=== PATIENT | female | born 1955 | race Caucasian/White ===

== ENCOUNTER → 2017-09-10 | Outpatient (CLI) | payer OTHER ==
--- NOTE | 2017-09-11 11:34 | MM ---
Reason for exam: screening (asymptomatic). Last mammogram was performed 2 years and 8 months ago. History: Patient is postmenopausal and had first child at age 34. Physical Findings: A clinical breast exam by your physician is recommended on an annual basis and results should be correlated with mammographic findings. MG Screening Mammo w CAD Bilateral CC and MLO view(s) were taken. Prior study comparison: January 18, 2015, bilateral MG screening mammo w CAD. The breast tissue is heterogeneously dense. This may lower the sensitivity of mammography. No significant changes when compared with prior studies. ASSESSMENT: Negative, BI-RAD 1 RECOMMENDATION: Routine screening mammogram of both breasts in 1 year.
== END | disposition home or self-care (01) ==
LOC: RADMAMWWP 09:34
PROVIDERS: ATTEND Family Medicine
DX: Z12.31 Encounter for screening mammogram for malignant neoplasm of breast (principal)
CPT/HCPCS: 77067

== ENCOUNTER → 2017-09-18 | Outpatient (CLI) | payer OTHER ==
--- NOTE | 2017-09-18 17:48 | XR ---
EXAMINATION TYPE: XR lumbosacral spine min 4V DATE OF EXAM: 09/18/2017 COMPARISON: NONE HISTORY: Back pain TECHNIQUE: 5 views FINDINGS: The lumbar vertebra have normal alignment. There is some narrowing at L4-5 L5-S1 disc space s with spurring of the endplates. There is no compression fracture. Posterior elements are intact. Sa croiliac joints are intact. IMPRESSION: Spondylotic changes in the lower lumbar spine. No fracture.
== END | disposition home or self-care (01) ==
LOC: RADXRMAIN 16:27
PROVIDERS: ATTEND Family Medicine
DX: M47.816 Spondylosis without myelopathy or radiculopathy, lumbar region (principal)
CPT/HCPCS: 72110

== ENCOUNTER → 2018-01-01 | Outpatient (CLI) | payer OTHER ==
--- NOTE | 2018-01-01 13:50 | US ---
EXAMINATION TYPE: US abdomen complete DATE OF EXAM: 01/01/2018 COMPARISON: NONE CLINICAL HISTORY: R10.84 ABDOMINAL PAIN. epigastric pain EXAM MEASUREMENTS: Liver Length: 13.2 cm Gallbladder Wall: 0.2 cm CBD: 0.4 cm Spleen: 7.9 cm Right Kidney: 9.4 x 3.8 x 4.6 cm Left Kidney: 9.9 x 4.9 x 5.3 cm Exam technically difficult tung to overlying bowel gas. Pancreas: visualized portions wnl. Tail is obscured by bowel gas. Liver: difficult to penetrate . There is a simple appearing cyst measuring 1.2 x 1.2 x 1.2 cm left l obe liver Gallbladder: No stones seen Evidence for sonographic Lee's sign: No CBD: wnl Spleen: wnl Right Kidney: No hydronephrosis or masses seen Left Kidney: No hydronephrosis or masses seen Upper IVC: wnl Abd Aorta: Prox: 2.0 x 2.3 cm, Mid: 1.9 x 1.9 cm, Dist ; 1.8 x 1.7 cm. rt bif: 1.2 x 1.0 cm, and lef t 1.0 x 1.1 cm. IMPRESSION: 1. Visualized abdomen ultrasound appears without acute changes. 2 simple cyst left lobe liver
== END | disposition home or self-care (01) ==
LOC: RADUSWWP 12:26
PROVIDERS: ATTEND Family Medicine
DX: K76.89 Other specified diseases of liver (principal)
CPT/HCPCS: 76700

== ENCOUNTER → 2018-02-19 | Outpatient (CLI) | payer OTHER ==
--- NOTE | 2018-02-19 15:48 | CT ---
EXAMINATION TYPE: CT abdomen pelvis w con DATE OF EXAM: 02/19/2018 COMPARISON: NONE HISTORY: 63 year-old female abdominal pain. History of aortic aneurysm repair. TECHNIQUE: Contiguous axial scanning of the abdomen and pelvis following administration of 100 ml Iso jacoby 300 IV contrast. Delayed images through the kidneys and coronal/sagittal reconstructions perform ed. CT DLP: 601.6 mGycm Automated exposure control for dose reduction was used. FINDINGS: Heart normal size without pericardial effusion. Irregular subpleural opacity inferior lingula likely pleural parenchymal scarring. No pleural effusion. Low-density of the liver relative to the spleen on portal venous phase suggesting underlying fatty in filtration. Approximately 6 hypodense liver lesions are present, all of which are too small fractured CT characte rization, or in the left lobe measuring up to 1.2 cm and 2 in the right hepatic lobe. These are most suggestive of cysts. Portal venous system is patent. No biliary ductal dilatation. Gallbladder, adrenal glands, kidneys, spleen, and pancreas appear within normal limits. No dilated small bowel, free fluid, or free air. Moderate stool in the left side of the colon with oral contrast progressed to the mid sigmoid. No per icolonic inflammatory change. No mesenteric or retroperitoneal lymphadenopathy. Prominent but nonenlarged 5 mm mid mesenteric lymph node, coronal image 23. No evidence for abdominal aortic aneurysm. Bladder is urine distended. Uterus obliques towards the left. Both ovaries are visualized. Phlebolith in the right side of the pelvis. No abnormal fluid collection in the pelvis or pelvic lymphadenopath y. Some surgical clips at the left inguinal region. Extensive posttraumatic deformity about the left hemipelvis with a asymmetric atrophy of some of the left abductor and medial upper thigh musculature. Degenerative ankylosis at the left SI joint, advanc ed degenerative disc disease L4-L5 and L5-S1 as well as hypertrophic facet arthropathy contributing t o severe right L5-S1 neuroforaminal stenosis. IMPRESSION: 1. 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 CORRELATE WITH LFT's, LIPID PROFILE, AND PATIENT RISK FACTOR S. APPROXIMATELY 6 LESIONS THAT ARE TOO SMALL TO CHARACTERIZE IN THE LIVER MOST LIKELY REPRESENT CYST S. 2. MODERATE COLONIC STOOL. 3. NO ACUTE INFLAMMATORY PROCESS IDENTIFIED IN THE ABDOMEN OR PELVIS. 4. SOME NODULAR SUBPLEURAL IRREGULARITY ALONG THE INFERIOR LINGULA LIKELY CORRESPONDS TO PLEURAL PARE NCHYMAL SCARRING.
== END | disposition home or self-care (01) ==
LOC: RADCTMAIN 12:00
PROVIDERS: ATTEND Surgery Plastic and Reconstructive Surgery
DX: K76.89 Other specified diseases of liver (principal); Z86.79 Personal history of other diseases of the circulatory system
CPT/HCPCS: 74177; Q9967

== ENCOUNTER → 2018-06-05 | Day surgery (SDC) | payer OTHER ==
[2018-06-03 12:59] VITALS: BMI 26.0
[~2018-06-05] MED LIST: GLYCOPYRROLATE 0.2 MG/ML 2 ML VIAL ONE; LACTATED RINGERS 1,000 ML IV SCH; LIDOCAINE 1% 20 ML VIAL (10MG/ML) FOR IV START INTRADERMA PRN; LIDOCAINE 1% INJ 10MG/ML (20 ML MDV) ONE; PROPOFOL 10 MG/ML 20 ML VIAL IV ONE
--- NOTE | 2018-06-05 08:34 | P.GSHP ---
History of Present Illness H&P Date: 06/05/18 CHIEF COMPLAINT: GERD HISTORY OF PRESENT ILLNESS: The patient is a 63-year-old female who presents reports gastroesophageal reflux disease. Upper endoscopy was offered for further evaluation and management. PAST MEDICAL HISTORY: Please see list. PAST SURGICAL HISTORY: Please see list. MEDICATIONS: Please see list. ALLERGIES: Please see list. SOCIAL HISTORY: No illicit drug use FAMILY HISTORY: No reports of Crohn disease or ulcerative colitis. REVIEW OF ORGAN SYSTEMS: CONSTITUTIONAL: No reports of fevers or chills. GI: Denies any blood in stools or constipation. PHYSICAL EXAM: VITAL SIGNS: Stable GENERAL: Well-developed and pleasant in no acute distress. HEENT: No scleral icterus. Extraocular movements grossly intact. Moist buccal mucosa. NECK: Supple without lymphadenopathy. CHEST: Unlabored respirations. Equal bilateral excursions. CARDIOVASCULAR: Regular rate and rhythm. Distal 2+ pulses. ABDOMEN: Soft, nondistended. MUSCULOSKELETAL: No clubbing, cyanosis, or edema. ASSESSMENT: 1. Gastroesophageal reflux disease PLAN: 1. Recommend proceeding with an upper endoscopy Past Medical History Past Medical History: Hypertension Additional Past Medical History / Comment(s): hx. abd. aortic aneurysm, epigastric pain w/bending over, chronic back pain History of Any Multi-Drug Resistant Organisms: MRSA Date of last positivie culture/infection: 2011 MDRO Source:: buttocks Additional Past Surgical History / Comment(s): aneurysm repair in 1986 in [place] Past Anesthesia/Blood Transfusion Reactions: No Reported Reaction Smoking Status: Former smoker - Past Family History Mother Sister(s) Family Medical History: Cancer Medications and Allergies Home Medications Medication Instructions Recorded Confirmed Type Meloxicam [Mobic] 7.5 mg PO DAILY 06/03/18 06/03/18 History Montelukast [Singulair] 10 mg PO DAILY 06/03/18 06/03/18 History Turmeric Root Extract [Turmeric] 500 mg PO DAILY 06/03/18 06/03/18 History amLODIPine BESYLATE/BENAZEPRIL 1 cap PO DAILY 06/03/18 06/03/18 History [Lotrel 5-40 MG] Allergies Allergy/AdvReac Type Severity Reaction Status Date / Time No Known Allergies Allergy Verified 06/03/18 12:45
[2018-06-05 09:17] VITALS: RESP 18; TEMP 97.8
--- NOTE | 2018-06-05 09:43 | P.PCN ---
Date of Procedure: 06/05/18 Description of Procedure: PREOPERATIVE DIAGNOSIS: Gastroesophageal reflux disease. Epigastric abdominal pain POSTOPERATIVE DIAGNOSIS: Gastroesophageal reflux disease. Epigastric abdominal pain Gastritis OPERATION: Esophagogastroduodenoscopy with biopsies along antrum. SURGEON: Yolande Duffy MD ANESTHESIA: MAC. INDICATIONS: The patient is a 63-year-old female who presents with a history of reflux disease. Benefits and risks of the procedure were described. Informed consent was obtained. DESCRIPTION: The patient was brought into the endoscopy suite and laid in the left lateral decubitus position. An Olympus gastroscope was passed along the posterior oropharynx down to the distal esophagus where the squamocolumnar junction was encountered at 36 cm from the incisors. The stomach was entered and no bile reflux was found. Additional findings are listed below. Biopsies with cold forceps were obtained of the antrum. The first through third portion of the duodenum was examined and unremarkable. Retroflexion of the scope confirmed Hill grade 1 lower esophageal valve. The squamocolumnar junction demonstrated LA grade A erosive esophagitis. The stomach was desufflated. The patient tolerated the procedure well. FINDINGS: Squamocolumnar junction 36 cm from the incisors. Diaphragmatic hiatus at 36 cm. Hill grade 2 lower esophageal valve. LA grade A erosive esophagitis. No active duodenitis. Chronic gastritis RECOMMENDATIONS: Upper endoscopy as needed. May benefit from manometry for epigastric abdominal pain Plan - Discharge Summary Discharge Rx Participant: No New Discharge Prescriptions: New Omeprazole 40 mg PO DAILY #14 capsule.dr Discontinued Turmeric Root Extract [Turmeric] 500 mg PO DAILY No Action amLODIPine BESYLATE/BENAZEPRIL [Lotrel 5-40 MG] 1 cap PO DAILY Montelukast [Singulair] 10 mg PO DAILY Meloxicam [Mobic] 7.5 mg PO DAILY Discharge Medication List Meloxicam [Mobic] 7.5 mg PO DAILY 06/03/18 [History] Montelukast [Singulair] 10 mg PO DAILY 06/03/18 [History] amLODIPine BESYLATE/BENAZEPRIL [Lotrel 5-40 MG] 1 cap PO DAILY 06/03/18 [History ] Omeprazole 40 mg PO DAILY #14 capsule. 06/05/18 [Rx] Follow up Appointment(s)/Referral(s): Yolande Duffy MD [STAFF PHYSICIAN] - 06/18/18 Patient Instructions/Handouts: Gastritis (ED), Gastroesophageal Reflux Disease (DC) Activity/Diet/Wound Care/Special Instructions: Avoid Tumeric with Mobic as increases chances for life threatening bleed! Discharge Disposition: HOME SELF-CARE
[2018-06-05 10:12] VITALS: BP 119/73; PULSE 76
== END | disposition home or self-care (01) ==
LOC: ORWHC2ENDO 08:41
PROVIDERS: ATTEND Surgery Plastic and Reconstructive Surgery
DX: K29.50 Unspecified chronic gastritis without bleeding (principal); B96.81 Helicobacter pylori [H. pylori] as the cause of diseases classified elsewhere; K21.0 Gastro-esophageal reflux disease with esophagitis; K22.10 Ulcer of esophagus without bleeding; I10 Essential (primary) hypertension; M54.9 Dorsalgia, unspecified; G89.29 Other chronic pain; F41.9 Anxiety disorder, unspecified; F32.9 Major depressive disorder, single episode, unspecified; Z79.1 Long term (current) use of non-steroidal anti-inflammatories (NSAID); Z79.899 Other long term (current) drug therapy; Z86.14 Personal history of Methicillin resistant Staphylococcus aureus infection; Z87.891 Personal history of nicotine dependence
CPT/HCPCS: 43239; J2001; J2704; 88305; 88342

== ENCOUNTER 2018-10-24 12:57 | Emergency (ER) | payer OTHER ==
--- NOTE | 2018-10-24 14:18 | ED ---
Psych HPI - General Chief Complaint: Psychiatric Symptoms Stated Complaint: Anxiety Time Seen by Provider: 10/24/18 13:24 Source: patient, RN notes reviewed Mode of arrival: ambulatory - History of Present Illness Initial Comments: Is a 63-year-old female with a history of anxiety disorder who states she's been sleeping a lot not feeling well she states she was out walking today a relatively hot day in her legs get weak. She states she is anxious because regardless have a baby she also just moved into a new location and feels like people are watching her. She denies any depression or suicidal thoughts. No fevers chills sweats or other symptoms. MD Complaint: other - Related Data Home Medications Medication Instructions Recorded Confirmed Meloxicam [Mobic] 7.5 mg PO DAILY 06/03/18 10/24/18 Montelukast [Singulair] 10 mg PO DAILY 06/03/18 10/24/18 amLODIPine BESYLATE/BENAZEPRIL 1 cap PO DAILY 06/03/18 10/24/18 [Lotrel 5-40 MG] Allergies Allergy/AdvReac Type Severity Reaction Status Date / Time No Known Allergies Allergy Verified 10/24/18 14:05 Review of Systems ROS Statement: Those systems with pertinent positive or pertinent negative responses have been documented in the HPI. ROS Other: All systems not noted in ROS Statement are negative. Past Medical History Past Medical History: Hypertension Additional Past Medical History / Comment(s): hx. abd. aortic aneurysm, epigastric pain w/bending over, chronic back pain History of Any Multi-Drug Resistant Organisms: MRSA Date of last positivie culture/infection: 2011 MDRO Source:: buttocks Additional Past Surgical History / Comment(s): aneurysm repair in 1986 in [place] Past Anesthesia/Blood Transfusion Reactions: No Reported Reaction Past Psychological History: Anxiety, Depression Smoking Status: Former smoker Past Alcohol Use History: Daily, Occasional Past Drug Use History: None Reported - Past Family History Mother Sister(s) Family Medical History: Cancer General Exam - General Exam Comments Initial Comments: This is a well-developed well-nourished awake alert oriented 3 female Limitations: no limitations General appearance: alert, anxious Head exam: Present: atraumatic, normocephalic, normal inspection Eye exam: Present: normal appearance, PERRL, EOMI. Absent: scleral icterus, conjunctival injection, periorbital swelling ENT exam: Present: normal exam, mucous membranes moist, TM's normal bilaterally Neck exam: Present: normal inspection. Absent: tenderness, meningismus, lymphadenopathy Respiratory exam: Present: normal lung sounds bilaterally. Absent: respiratory distress, wheezes, rales, rhonchi, stridor Cardiovascular Exam: Present: regular rate, normal rhythm, normal heart sounds. Absent: systolic murmur, diastolic murmur, rubs, gallop, clicks GI/Abdominal exam: Present: soft, normal bowel sounds. Absent: distended, tenderness, guarding, rebound, rigid Extremities exam: Present: normal inspection, full ROM, normal capillary refill. Absent: tenderness, pedal edema, joint swelling, calf tenderness Back exam: Present: normal inspection Neurological exam: Present: alert, oriented X3, CN II-XII intact Psychiatric exam: Present: normal affect, normal mood Skin exam: Present: warm, dry, intact, normal color. Absent: rash Course Vital Signs 10/24/18 13:18 Temperature 98.1 F Pulse Rate 70 Respiratory 18 Rate Blood Pressure 99/52 O2 Sat by Pulse 96 Oximetry Medical Decision Making - Medical Decision Making Patient was evaluated by psychiatric service found not to be wrist herself or anyone so be discharged was noted that she had renal insufficiency dehydration her lab work and long discussion with her regarding increasing her oral fluids she would like to go home she will be increasing her fluids follow-up with Dr. Mathis outpatient I did request that she see him within the next week. Patient will be given hydration prior to discharge - Lab Data Result diagrams: 10/24/18 15:41 10/24/18 15:41 Lab Results 10/24/18 10/24/18 10/24/18 Range/Units 14:13 15:41 15:41 WBC 9.7 (3.8-10.6) k/uL RBC 4.56 (3.80-5.40) m/uL Hgb 13.9 (11.4-16.0) gm/dL Hct 43.0 (34.0-46.0) % MCV 94.2 (80.0-100.0) fL MCH 30.4 (25.0-35.0) pg MCHC 32.3 (31.0-37.0) g/dL RDW 13.3 (11.5-15.5) % Plt Count 249 (150-450) k/uL Neutrophils % 72 % Lymphocytes % 18 % Monocytes % 6 % Eosinophils % 2 % Basophils % 1 % Neutrophils # 7.0 (1.3-7.7) k/uL Lymphocytes # 1.8 (1.0-4.8) k/uL Monocytes # 0.6 (0-1.0) k/uL Eosinophils # 0.2 (0-0.7) k/uL Basophils # 0.1 (0-0.2) k/uL Sodium 139 (137-145) mmol/L Potassium 5.6 H (3.5-5.1) mmol/L Chloride 105 (98-107) mmol/L Carbon Dioxide 23 (22-30) mmol/L Anion Gap 11 mmol/L BUN 33 H (7-17) mg/dL Creatinine 2.33 H (0.52-1.04) mg/dL Est GFR (CKD-EPI)AfAm 25 (>60 ml/min/1.73 sqM) Est GFR (CKD-EPI)NonAf 22 (>60 ml/min/1.73 sqM) Glucose 104 H (74-99) mg/dL Calcium 10.3 H (8.4-10.2) mg/dL Magnesium 2.1 (1.6-2.3) mg/dL Total Bilirubin 0.5 (0.2-1.3) mg/dL AST 22 (14-36) U/L ALT 23 (9-52) U/L Alkaline Phosphatase 85 (38-126) U/L Total Protein 7.2 (6.3-8.2) g/dL Albumin 4.7 (3.5-5.0) g/dL Urine Opiates Screen Not Detected (NotDetected) Ur Oxycodone Screen Not Detected (NotDetected) Urine Methadone Screen Not Detected (NotDetected) Ur Propoxyphene Screen Not Detected (NotDetected) Ur Barbiturates Screen Not Detected (NotDetected) U Tricyclic Antidepress Not Detected (NotDetected) Ur Phencyclidine Scrn Not Detected (NotDetected) Ur Amphetamines Screen Not Detected (NotDetected) U Methamphetamines Scrn Not Detected (NotDetected) U Benzodiazepines Scrn Detected H (NotDetected) Urine Cocaine Screen Not Detected (NotDetected) U Marijuana (THC) Screen Not Detected (NotDetected) - EKG Data -: EKG Interpreted by Me EKG shows normal: sinus rhythm (There was sinus rhythm a 68 HI interval 128 QRS duration 80 QT since QTC 398/[address]-T wave changes) Disposition Clinical Impression: Acute anxiety, Renal insufficiency syndrome, Dehydration Disposition: HOME SELF-CARE Condition: Good Instructions (If sedation given, give patient instructions): Anxiety (ED), Dehydration (ED), Acute Kidney Injury (DC) Additional Instructions: Increase oral fluid consumption as we have discussed Is patient prescribed a controlled substance at d/c from ED?: No Referrals: Jeremy Mathis MD [Primary Care Provider] - 1-2 days
[2018-10-24 14:41] LABS: Cocaine Screen,Urine Not Detected (NotDetected); Phencyclidine Screen,Urine Not Detected (NotDetected); Urn Cannabinoid Scrn Not Detected (NotDetected)
[2018-10-24 14:42] LABS: Amphetamine Screen,Urine Not Detected (NotDetected); Barbiturate Screen,Urine Not Detected (NotDetected); Benzodiazepines Screen,Urine Detected (NotDetected); Methadone Screen, Urine Not Detected (NotDetected); Opiate Screen,Urine Not Detected (NotDetected); Oxycodone Screen, Urine Not Detected (NotDetected); Tricyclic Antidepressant,Urine Not Detected (NotDetected)
[2018-10-24 15:52] LABS: Basophils # (A) 0.1 k/uL (0-0.2); Basophils % (A) 1 %; Eosinophils # (A) 0.2 k/uL (0-0.7); Eosinophils % (A) 2 %; HGB 13.9 gm/dL (11.4-16.0); Lymphocytes # (A) 1.8 k/uL (1.0-4.8); Lymphocytes % (A) 18 %; MCH 30.4 pg (25.0-35.0); MCHC 32.3 g/dL (31.0-37.0); MCV 94.2 fL (80.0-100.0); Mean Platelet Volume 7.4; Monocytes # (A) 0.6 k/uL (0-1.0); Monocytes % (A) 6 %; Neutrophils % (A) 72 %; Platelet Count 249 k/uL (150-450); RBC 4.56 m/uL (3.80-5.40); RDW 13.3 % (11.5-15.5); WBC 9.7 k/uL (3.8-10.6)
[2018-10-24 15:59] LABS: Albumin 4.7 g/dL (3.5-5.0); Calcium 10.3 mg/dL (8.4-10.2); Magnesium 2.1 mg/dL (1.6-2.3); Potassium 5.6 mmol/L (3.5-5.1); Total Bilirubin 0.5 mg/dL (0.2-1.3); Total Protein 7.2 g/dL (6.3-8.2)
[2018-10-24] MEDS ORDERED: SODIUM CHLORIDE 0.9% 1,000 ML IV STA (16:03)
[2018-10-24 16:36] VITALS: BP 94/58; PULSE 67; RESP 16; TEMP 99.3
[2018-10-24 17:24] LABS: Creatine Kinase MB 0.5 ng/mL (0.0-2.4)
== END 2018-10-24 16:36 | disposition home or self-care (01) ==
LOC: EC 12:57
DX: F41.9 Anxiety disorder, unspecified (principal); N28.9 Disorder of kidney and ureter, unspecified; E86.0 Dehydration; I10 Essential (primary) hypertension; Z79.1 Long term (current) use of non-steroidal anti-inflammatories (NSAID); Z79.899 Other long term (current) drug therapy; Z87.891 Personal history of nicotine dependence
CPT/HCPCS: 36415; 80053; 80306; 82075; 82550; 82553; 83735; 85025; 93005; 99283

== ENCOUNTER → 2018-10-28 | Outpatient (CLI) | payer OTHER ==
[2018-10-28 12:40] LABS: Basophils # (A) 0.1 k/uL (0-0.2); Basophils % (A) 1 %; Eosinophils # (A) 0.2 k/uL (0-0.7); Eosinophils % (A) 2 %; HCT 43.7 % (34.0-46.0); HGB 14.1 gm/dL (11.4-16.0); Lymphocytes # (A) 2.3 k/uL (1.0-4.8); Lymphocytes % (A) 29 %; MCH 30.6 pg (25.0-35.0); MCHC 32.3 g/dL (31.0-37.0); MCV 94.9 fL (80.0-100.0); Monocytes # (A) 0.4 k/uL (0-1.0); Monocytes % (A) 5 %; Neutrophils # (A) 4.9 k/uL (1.3-7.7); Neutrophils % (A) 62 %; Platelet Count 257 k/uL (150-450); RDW 14.4 % (11.5-15.5)
[2018-10-28 13:09] LABS: African American GFR (CKD) 44 (>60 ml/min/1.73 sqM); Anion Gap 8 mmol/L; Blood Urea Nitrogen 22 mg/dL (7-17); Calcium 10.2 mg/dL (8.4-10.2); Carbon Dioxide 28 mmol/L (22-30); Chloride 100 mmol/L (98-107); Glucose 107 mg/dL (74-99); Sodium 136 mmol/L (137-145)
[2018-10-28 13:21] LABS: Potassium 6.5 mmol/L (3.5-5.1)
== END | disposition home or self-care (01) ==
LOC: LABWHC1 11:46
PROVIDERS: ATTEND Family Medicine
DX: G47.09 Other insomnia (principal); L03.312 Cellulitis of back [any part except buttock and flank]; N17.9 Acute kidney failure, unspecified; E86.0 Dehydration
CPT/HCPCS: 36415; 80048; 85025

== ENCOUNTER → 2018-10-29 | Outpatient (CLI) | payer OTHER ==
[2018-10-29 09:43] LABS: African American GFR (CKD) 53 (>60 ml/min/1.73 sqM); Anion Gap 11 mmol/L; Blood Urea Nitrogen 21 mg/dL (7-17); Calcium 9.6 mg/dL (8.4-10.2); Carbon Dioxide 26 mmol/L (22-30); Chloride 102 mmol/L (98-107); Glucose 102 mg/dL (74-99); Potassium 5.1 mmol/L (3.5-5.1); Sodium 139 mmol/L (137-145)
== END | disposition home or self-care (01) ==
LOC: LABWHC1 08:19
PROVIDERS: ATTEND Family Medicine
DX: E87.5 Hyperkalemia (principal)
CPT/HCPCS: 36415; 80048

== ENCOUNTER 2019-05-29 07:38 | Day surgery (SDC) | payer OTHER ==
[2019-05-28 08:43] VITALS: BMI 24.7
[~2019-05-29 07:38] MED LIST changes: -GLYCOPYRROLATE 0.2 MG/ML 2 ML VIAL ONE; -LIDOCAINE 1% INJ 10MG/ML (20 ML MDV) ONE; -PROPOFOL 10 MG/ML 20 ML VIAL IV ONE
[2019-05-29 07:59] VITALS: TEMP 97.5
--- NOTE | 2019-05-29 08:27 | P.GSHP ---
History of Present Illness H&P Date: 05/29/19 CHIEF COMPLAINT: GERD HISTORY OF PRESENT ILLNESS: The patient is a 64-year-old female who presents reports gastroesophageal reflux disease. Upper endoscopy was offered for further evaluation and management. PAST MEDICAL HISTORY: Please see list. PAST SURGICAL HISTORY: Please see list. MEDICATIONS: Please see list. ALLERGIES: Please see list. SOCIAL HISTORY: No illicit drug use FAMILY HISTORY: No reports of Crohn disease or ulcerative colitis. REVIEW OF ORGAN SYSTEMS: CONSTITUTIONAL: No reports of fevers or chills. GI: Denies any blood in stools or constipation. PHYSICAL EXAM: VITAL SIGNS: Stable GENERAL: Well-developed and pleasant in no acute distress. HEENT: No scleral icterus. Extraocular movements grossly intact. Moist buccal mucosa. NECK: Supple without lymphadenopathy. CHEST: Unlabored respirations. Equal bilateral excursions. CARDIOVASCULAR: Regular rate and rhythm. Distal 2+ pulses. ABDOMEN: Soft, nondistended. MUSCULOSKELETAL: No clubbing, cyanosis, or edema. ASSESSMENT: 1. Gastroesophageal reflux disease PLAN: 1. Recommend proceeding with an upper endoscopy Past Medical History Past Medical History: Hypertension Additional Past Medical History / Comment(s): hx. abd. aortic aneurysm, epigastric pain w/bending over, chronic back pain, hx h-pylori History of Any Multi-Drug Resistant Organisms: MRSA Date of last positivie culture/infection: 2011 MDRO Source:: buttocks Additional Past Surgical History / Comment(s): aneurysm repair in 1986 in [place] Past Anesthesia/Blood Transfusion Reactions: No Reported Reaction Smoking Status: Former smoker - Past Family History Mother Sister(s) Family Medical History: Cancer Additional Family Medical History / Comment(s): mom-ovarian. sister lung Medications and Allergies Home Medications Medication Instructions Recorded Confirmed Type Meloxicam [Mobic] 7.5 mg PO DAILY 06/03/18 05/29/19 History Montelukast [Singulair] 10 mg PO DAILY 06/03/18 05/29/19 History amLODIPine BESYLATE/BENAZEPRIL 1 cap PO DAILY 06/03/18 05/29/19 History [Lotrel 5-40 MG] Allergies Allergy/AdvReac Type Severity Reaction Status Date / Time No Known Allergies Allergy Verified 05/29/19 07:54 Surgical - Exam Vital Signs Temp Pulse Resp BP Pulse Ox 97.5 F L 71 17 133/75 93 L 05/29/19 07:59 05/29/19 07:59 05/29/19 07:59 05/29/19 07:59 05/29/19 07:59
[2019-05-29] MEDS ORDERED: PROPOFOL 10 MG/ML 20 ML VIAL IV ONE (08:35)
[2019-05-29] MEDS ORDERED: GLYCOPYRROLATE 0.2 MG/ML 2 ML VIAL ONE (08:35)
[2019-05-29] MEDS ORDERED: LIDOCAINE 1% INJ 10MG/ML (20 ML MDV) ONE (08:35)
--- NOTE | 2019-05-29 08:47 | P.PCN ---
Date of Procedure: 05/29/19 Description of Procedure: PREOPERATIVE DIAGNOSIS: Gastroesophageal reflux disease. History of H. pylori gastritis POSTOPERATIVE DIAGNOSIS: Gastroesophageal reflux disease. History of H. pylori gastritis OPERATION: Esophagogastroduodenoscopy with biopsies along antrum. SURGEON: Yolande Duffy MD ANESTHESIA: MAC. INDICATIONS: The patient is a 33-year-old female who presents with a history of reflux disease. Benefits and risks of the procedure were described. Informed consent was obtained. DESCRIPTION: The patient was brought into the endoscopy suite and laid in the left lateral decubitus position. An Olympus gastroscope was passed along the posterior oropharynx down to the distal esophagus where the squamocolumnar junction was encountered at 36 cm from the incisors. The stomach was entered and no bile reflux was found. Additional findings are listed below. Biopsies with cold forceps were obtained of the antrum. The first through third portion of the duodenum was examined and unremarkable. Retroflexion of the scope confirmed Hill grade 2 lower esophageal valve. The squamocolumnar junction demonstrated LA grade A erosive esophagitis. The stomach was desufflated. The patient tolerated the procedure well. FINDINGS: Squamocolumnar junction 36 cm from the incisors. Diaphragmatic hiatus at 36 cm. Hill grade 2 lower esophageal valve. LA grade A erosive esophagitis. No active duodenitis. Chronic gastritis RECOMMENDATIONS: Upper endoscopy as needed. Plan - Discharge Summary Discharge Rx Participant: No New Discharge Prescriptions: No Action amLODIPine BESYLATE/BENAZEPRIL [Lotrel 5-40 MG] 1 cap PO DAILY Montelukast [Singulair] 10 mg PO DAILY Meloxicam [Mobic] 7.5 mg PO DAILY Discharge Medication List Meloxicam [Mobic] 7.5 mg PO DAILY 06/03/18 [History] Montelukast [Singulair] 10 mg PO DAILY 06/03/18 [History] amLODIPine BESYLATE/BENAZEPRIL [Lotrel 5-40 MG] 1 cap PO DAILY 06/03/18 [History] Follow up Appointment(s)/Referral(s): Yolande Duffy MD [STAFF PHYSICIAN] - 06/10/19 Patient Instructions/Handouts: Gastritis (DC) Discharge Disposition: HOME SELF-CARE
[2019-05-29 08:50] VITALS: RESP 16
[2019-05-29 09:05] VITALS: BP 123/65; PULSE 98
== END 2019-05-29 09:51 | disposition home or self-care (01) ==
LOC: ORWHC2ENDO 07:38
PROVIDERS: ATTEND Surgery Plastic and Reconstructive Surgery
DX: K29.50 Unspecified chronic gastritis without bleeding (principal); K31.9 Disease of stomach and duodenum, unspecified; K21.0 Gastro-esophageal reflux disease with esophagitis; K22.10 Ulcer of esophagus without bleeding; I10 Essential (primary) hypertension; F41.9 Anxiety disorder, unspecified; F32.9 Major depressive disorder, single episode, unspecified; M54.9 Dorsalgia, unspecified; G89.29 Other chronic pain; Z86.19 Personal history of other infectious and parasitic diseases; Z86.14 Personal history of Methicillin resistant Staphylococcus aureus infection; Z79.1 Long term (current) use of non-steroidal anti-inflammatories (NSAID); Z79.899 Other long term (current) drug therapy; Z98.890 Other specified postprocedural states; Z87.891 Personal history of nicotine dependence; Z80.1 Family history of malignant neoplasm of trachea, bronchus and lung; Z80.41 Family history of malignant neoplasm of ovary
CPT/HCPCS: 88305; 43239; J2001; J2704

== ENCOUNTER 2019-08-14 14:29 | Day surgery (SDC) | payer OTHER ==
--- NOTE | 2019-08-12 15:29 | HP ---
HISTORY AND PHYSICAL CHIEF COMPLAINT: Left wrist pain. HISTORY OF PRESENT ILLNESS: The patient is a 64-year-old, left-hand dominant, retired female who presents with left wrist pain after an injury on 08/08/2019. She was at home when she fell down a flight of stairs landing on her left side. She denied loss of consciousness. Initially, she was seen at an urgent care facility and placed in a splint. She denies previous injury to that wrist. PAST MEDICAL HISTORY: Significant for hypertension. PAST SURGICAL HISTORY: Significant for aortic aneurysm repair. CURRENT MEDICATIONS: [place] and antihypertensives. ALLERGIES: She denies drug allergies. FAMILY HISTORY: Significant for cancer and stroke. SOCIAL HISTORY: Significant for previous tobacco use, however, she quit in 2007. REVIEW OF SYSTEMS: A 16-point review of systems is otherwise reviewed and is noncontributory. PHYSICAL EXAMINATION: The patient is approximately 5 feet, 3 inches tall, 130 pounds with mesomorphic habitus. HEENT: Nonfocal. NECK: Supple. She is nontender about the left shoulder and elbow. On examination of her left wrist, she has moderate dorsal swelling. She is tender over the distal radius. She has limited motion secondary to pain. Light touch is distally intact throughout the left digits. Capillary refill is less than 2 seconds in the left digits. X-rays of the left wrist brought in with the patient show an intraarticular distal radius fracture with significant dorsal tilt and shortening. There is dorsal comminution as well. IMPRESSION: Left intraarticular distal radius fracture. RECOMMENDATIONS: I talked to the patient at length regarding her condition and treatment options. At this point, recommend proceeding with surgical intervention. We will plan to proceed with open reduction and internal fixation. We will potentially keep the patient for 23- hour hold postoperatively. Risks and benefits were discussed at length in layman's terms. MMODL / IJN: [id number] /
[2019-08-13 11:32] VITALS: BMI 23.0
[2019-08-14] MEDS ORDERED: DEXAMETHASONE SOD PHOSPHATE 10 MG/ML 1 ML VIAL IV ONE (14:56)
[2019-08-14] MEDS ORDERED: MIDAZOLAM 2 MG/2 ML VIAL IV PRN (14:56)
[2019-08-14] MEDS ORDERED: LACTATED RINGERS 1,000 ML IV SCH (14:56)
[2019-08-14] MEDS ORDERED: ONDANSETRON 4 MG/2 ML VIAL IVP ONE (14:56)
[2019-08-14 15:08] LABS: Basophils % (A) 0 %; Eosinophils # (A) 0.3 k/uL (0-0.7); Eosinophils % (A) 4 %; HCT 38.8 % (34.0-46.0); HGB 12.9 gm/dL (11.4-16.0); Lymphocytes # (A) 2.7 k/uL (1.0-4.8); Lymphocytes % (A) 34 %; MCH 30.3 pg (25.0-35.0); MCHC 33.3 g/dL (31.0-37.0); Mean Platelet Volume 7.6; Monocytes # (A) 0.4 k/uL (0-1.0); Monocytes % (A) 4 %; Neutrophils # (A) 4.4 k/uL (1.3-7.7); Neutrophils % (A) 56 %; Platelet Count 290 k/uL (150-450); RBC 4.26 m/uL (3.80-5.40); RDW 12.7 % (11.5-15.5); WBC 7.9 k/uL (3.8-10.6)
[2019-08-14 15:20] LABS: Potassium 4.3 mmol/L (3.5-5.1)
[2019-08-14] MEDS ORDERED: MIDAZOLAM 2 MG/2 ML VIAL IV ONE (15:34)
[2019-08-14] MEDS ORDERED: ALFENTANIL 500 MCG/ML 2 ML AMP IV ONE (15:42)
[2019-08-14] MEDS ORDERED: PROPOFOL 10 MG/ML 20 ML VIAL IV ONE (15:42)
[2019-08-14] MEDS ORDERED: SUCCINYLCHOLINE CHLORIDE 100 MG/5 ML SYR IV ONE (15:42)
[2019-08-14] MEDS ORDERED: LIDOCAINE 1% INJ 10MG/ML (20 ML MDV) ONE (15:42)
[2019-08-14] MEDS ORDERED: DEXAMETHASONE SOD PHOSPHATE 4 MG/ML 1 ML VIAL ONE (15:42)
[2019-08-14] MEDS ORDERED: ROPIVACAINE 5 MG/ML 30 ML VIAL ONE (15:42)
[2019-08-14] MEDS ORDERED: ePHEDrine SULFATE/0.9% NACL/PF 50 MG/5 ML SYRINGE IV ONE (15:42)
--- NOTE | 2019-08-14 17:07 | P.OP ---
Date of Procedure: 08/14/19 Preoperative Diagnosis: Displaced left intra-articular distal radius fracture Postoperative Diagnosis: Same Procedure(s) Performed: Open reduction and internal fixation left intra-articular distal radius fracture Implants: Arthrex narrow 3 hole volar distal radial plate Anesthesia: OZZIE [facility] Surgeon: Basil Bernard Material Handler Floorperson #1: Matthew Garcia Estimated Blood Loss (ml): 5 Pathology: none sent Condition: stable Disposition: PACU Indications for Procedure: Patient is a 64-year-old female who presents after recently falling injuring her left wrist. Upon evaluation she is noted of a displaced left intra-articular distal radius fracture. A discussion of the risks and benefits of operative intervention versus conservative measures was made with patient. She opted proceed with surgery. Operative risks to include infection, neurovascular injury, development of blood clots, development of malunion/nonunion, possible need for subsequent procedures was discussed. Informed consent was obtained. Operative Findings: As below Description of Procedure: The patient was brought to the operating room, and after induction of general anesthesia the left upper extremity was prepped and draped in normal fashion. The tourniquet was inflated to 250 mmHg. A volar incision was then made extending from the volar distal wrist crease proximally 8 cm. The skin was incised sharply. Subcu tissues were divided bluntly. The FCR sheath was identified and opened. The tendon was gently retracted ulnarly with the radial artery retracted radially. The posterior aspect the sheath was opened and the contents the carpal canal were bluntly dissected ulnarly. A self-retaining retractor was placed. The pronator quadratus was elevated off the distal radius. The fracture site was identified and cleaned of clot and debris. This was then provisionally reduced with longitudinal traction and manipulation. A 3 hole narrow volar plate was then placed and provisionally held in place with an olive wire and K wires. This was verified with fluoroscopy on the AP and lateral views. I felt there was adequate muslim of volar tilt and radial height/inclination. There was less than 1-2 mm articular step off. Proximally 3.5 mm cortical screws the appropriate length were placed with good purchase. Distally smooth locking pegs were placed the appropriate length. Final fluoroscopic views to include AP, elevated lateral, and PA views showed adequate reduction of the fracture, muslim of volar tilt, muslim of radial inclination and height, and intra-articular congruity. The wound was irrigated normal saline. The pronator was reapproximated with simple 3-0 Vicryl suture. The subcutaneous tissues reapproximated interrupted 3-0 Vicryl sutures. The skin was reapproximated with 4-0 subcuticular Prolene suture. Steri-Strips were applied. Tourniquet was deflated less than 50 minutes total tourniquet time. A sterile dressing was applied in addition to a volar splint. The patient was awoken from general anesthesia and transferred to recovery room in good condition. Blood loss was made 5 mL. No complications were incurred. Sponge and needle counts were correct at the end the case. Roldan SPRINGER assistance during major components the case to include exposure, fracture reduction, and implant placement along with closure and splint application.
--- NOTE | 2019-08-14 17:14 | XR ---
Fluoroscopy INDICATION: Pain FINDINGS: Fluoroscopy time: 16 seconds. Images obtained: 3. IMPRESSIONS: 1. Documentation of fluoroscopy.
[2019-08-14] MEDS: HYDROmorphone 0.5 MG/0.5 ML SYRINGE IVP PRN ×2 (17:16→17:21)
[2019-08-14] MEDS ORDERED: LACTATED RINGERS 1,000 ML IV ONE (17:43)
[2019-08-14] MEDS ORDERED: HYDROcodone/APAP 5-325MG 1 EACH TAB PO STA (18:29)
[2019-08-14] MEDS ORDERED: HYDROcodone/APAP 5-325MG 1 EACH TAB PO PRN (19:56)
--- NOTE | 2019-08-14 20:05 | P.ANPRN ---
Procedure Note - Anesthesia - Nerve Block Performed Left Supraclavicular Single Time Out Performed: Yes Date of Procedure: 08/14/19 Procedure Start Time: 15:34 Procedure Stop Time: 15:40 Location of Patient: PreOp Indication: Acute Post-Operative Pain, Requested by Surgeon Sedation Type: Sedate with meaningful contact maintained Preparation: Sterile Prep Position: Supine Needle Types: Pajunk Needle Gauge: 21 Ultrasound used to visualize needle placement: Yes Ultrasound used to observe medication spread: Yes Blood Aspirated: No Pain Paresthesia on Injection Noted: No Resistance on Injection: Normal Image Stored and Saved: Yes Events: Uneventful and Well Tolerated (ropi .5% 20cc plus dexamethasone 4mg)
[2019-08-14] MEDS ORDERED: LISINOPRIL 20 MG TAB PO SCH (21:00)
[2019-08-14] MEDS ORDERED: amLODIPine 5 MG TAB PO SCH (21:00)
[2019-08-15 05:59] VITALS: RESP 16
--- NOTE | 2019-08-15 10:04 | P.DS ---
Providers Date of admission: 08/14/2019 Expected date of discharge: 08/15/19 Attending physician: Basil Bernard Primary care physician: Jeremy Mathis Hospital Course: Date of admission: 08/14/2019 Date of discharge: 2019 Admission diagnosis: Status post ORIF right distal radius fracture Discharge diagnosis: Same Attending physician: Dr. Bernard Surgical procedures: Open reduction internal fixation left distal radius fracture Brief history: Patient is a 64-year-old female who was evaluated in the outpatient setting by Dr. Bernard with regards to an injury to her left wrist. It was determined she would need surgical fixation for the left distal radius fracture. She was scheduled for that procedure on 08/14/2019. Hospital course: Details of patient's surgery can be found in operative report. Patient tolerated the procedure well and was subsequently transported to orthopedic floor. Patient was initially scheduled for an outpatient surgery. Due to the covid 19 issue she was not taken initially to the phase 2 recovery, she was taken to the floor with hopeful discharge shortly thereafter. She was quite drowsy from some of the pain medication she received an is 1 recovery, I was contacted by the nurse that night regarding this. We did keep her overnight for observation, her home medications were restarted. Discharge condition/disposition: Patient will be discharged home in stable condition. Discharge medications: Instructions are given on resumption of patient's normal daily medications per primary care recommendation, in addition patient will be prescribed [place] 5 mg/325 mg, ibuprofen 800 mg. Discharge instructions: 1. Wound care and infection precautions, keep incision dry and covered while showering, no lotions, creams, moisturizers. No soaking, tubs, pools, hottubs. Do not scrub over the incision. 2. Utilize the arm sling as needed 3. Do not remove arm splint, keep clean and dry. Keep covered when showering 4. Ice and elevate as needed 5. Follow up in office at 2 weeks postop with Roldan Garcia PA-C 6. Follow up with your primary care doctor 7-10 days after discharge. 7. Contact [facility] with any questions, . Procedures: Open reduction internal fixation right distal radius fracture Patient Condition at Discharge: Good Plan - Discharge Summary Discharge Rx Participant: No New Discharge Prescriptions: New Hydrocodone/Acetaminophen [C[place] 5-325] 1 each PO Q6HR PRN #28 tab PRN Reason: Pain Ibuprofen 800 mg PO Q8H PRN #40 tab PRN Reason: Pain No Action amLODIPine BESYLATE/BENAZEPRIL [Lotrel 5-40 MG] 1 cap PO HS Montelukast [Singulair] 10 mg PO DAILY Meloxicam [Mobic] 7.5 mg PO DAILY HYDROcodone/APAP 5-325MG [[place] 5-325] 1 tab PO Q6HR PRN PRN Reason: Pain Discharge Medication List Meloxicam [Mobic] 7.5 mg PO DAILY 06/03/18 [History] Montelukast [Singulair] 10 mg PO DAILY 06/03/18 [History] amLODIPine BESYLATE/BENAZEPRIL [Lotrel 5-40 MG] 1 cap PO HS 06/03/18 [History] HYDROcodone/APAP 5-325MG [[place] 5-325] 1 tab PO Q6HR PRN 08/13/19 [History] Hydrocodone/Acetaminophen [[place] 5-325] 1 each PO Q6HR PRN #28 tab 08/14/19 [Rx] Ibuprofen 800 mg PO Q8H PRN #40 tab 08/15/19 [Rx] Follow up Appointment(s)/Referral(s): Matthew Garcia PAC [PHYSICIAN LATHE TENDER] - 2 Weeks (Please call to schedule your appointment. The office was closed at the time of your discharge.) Activity/Diet/Wound Care/Special Instructions: Orthopedic Discharge Instructions: 1. Resume home medications 2. Pain medication as needed 3. Ice and elevate often 4. Sling as needed 5. Do not remove splint, keep covered while showering 6. Follow up at [facility] in 2 weeks Discharge Disposition: HOME SELF-CARE
[2019-08-15 11:56] VITALS: BP 103/57; PULSE 75; TEMP 98
--- NOTE | 2019-08-15 13:17 | CT ---
EXAMINATION TYPE: CT brain wo con DATE OF EXAM: 08/15/2019 COMPARISON: None INDICATION: fall DLP: 937.7 mGycm, Automated exposure control for dose reduction was used. CONTRAST: None CT of the brain is performed utilizing 3 mm thick sections through the posterior fossa and 3 mm thick sections through the remaining calvarium. Study is performed within 24 hours of arrival to the hosp ital. No abnormal hyperdensity is present to suggest an acute intracranial hemorrhage. No mass lesion is evident. No acute infarcts are evident. Ventricles and sulci are appropriate for the patient age. Paranasal sinuses and mastoid air cells within the [id number] are clear. There is some mild soft tissue swelling over the left orbital region. Calcification appears to be charly ng the anterior lateral orbit near the expected region of the lacrimal gland. This is not appear to b e a fracture or avulsion with no donor site. IMPRESSIONS: 1. No acute intracranial process. 2. Mild soft tissue swelling left orbital region. 3. Some calcification along the lateral left orbit globe.
[2019-08-15] MEDS ORDERED: PANTOPRAZOLE 40 MG/10 ML VIAL IVP SCH (14:45)
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
--- NOTE | 2019-08-15 15:39 | XR ---
EXAMINATION TYPE: XR Hip RT and AP Pelvis DATE OF EXAM: 08/15/2019 COMPARISON: 02/19/2018 CT abdomen pelvis HISTORY: Pain, slip and fall TECHNIQUE: AP pelvis FINDINGS: There is absence of the medial left pubic ramus. This is an old change. Surgical clips are over the left hip. Bilateral hips articulate with the acetabulum. Sacroiliac joints and symphysis pubis appear normal. Attention is paid to the right hip. Femoral head articulates with the acetabulum. Joint spaces preser carlton. No acute fractures evident. IMPRESSION: 1. Normal 2 view right hip. 2. Old posttraumatic change left pubic ramus
--- NOTE | 2019-08-15 15:41 | CT ---
EXAMINATION TYPE: CT cervical spine wo con DATE OF EXAM: 08/15/2019 COMPARISON: HISTORY: neck pain following fall CT DLP: 305.6 mGycm CONTRAST: None CT of the cervical spine is performed in the axial plane at 2 mm thick sections. Reconstructed image s in the coronal, and sagittal plane are reviewed on the computer. No acute fractures are evident. Vertebral body alignment is normal. There is narrowing of the disc height of C5-6. Minimal narrowing may be present within additional dis c space levels. Vertebral body heights are preserved. No spinal canal stenosis is evident. No significant neural foraminal stenosis is evident. There are some scattered areas of uncovertebral joint hypertrophy and facet hypertrophy. IMPRESSIONS: 1. No acute osseous abnormality cervical spine. 2. Degenerative disc changes greatest C5-6.
== END 2019-08-15 17:40 | disposition home or self-care (01) ==
LOC: OR 14:29 → 5NMEDONC 16:59 → OR 08-15 17:40
PROVIDERS: ATTEND Orthopaedic Surgery
DX: S52.572A Other intraarticular fracture of lower end of left radius, initial encounter for closed fracture (principal); I95.81 Postprocedural hypotension; R21 Rash and other nonspecific skin eruption; M25.551 Pain in right hip; I10 Essential (primary) hypertension; K21.9 Gastro-esophageal reflux disease without esophagitis; M54.9 Dorsalgia, unspecified; G89.29 Other chronic pain; F41.9 Anxiety disorder, unspecified; F32.9 Major depressive disorder, single episode, unspecified; Z98.890 Other specified postprocedural states; Z79.899 Other long term (current) drug therapy; Z79.1 Long term (current) use of non-steroidal anti-inflammatories (NSAID); Z87.891 Personal history of nicotine dependence; Z87.81 Personal history of (healed) traumatic fracture; Z86.14 Personal history of Methicillin resistant Staphylococcus aureus infection; Z98.51 Tubal ligation status; Z86.19 Personal history of other infectious and parasitic diseases; Z91.09 Other allergy status, other than to drugs and biological substances; Z91.89 Other specified personal risk factors, not elsewhere classified; Z80.1 Family history of malignant neoplasm of trachea, bronchus and lung; Z80.41 Family history of malignant neoplasm of ovary; Z82.3 Family history of stroke; W10.9XXA Fall (on) (from) unspecified stairs and steps, initial encounter; Y92.019 Unspecified place in single-family (private) house as the place of occurrence of the external cause
CPT/HCPCS: 25608; 93005; 64415; 76942; 80051; 85025; 73502; 73100; 72125; 70450; C1713; J2250; J1100 ×2; J2405; J0690; J2001; J2795; J0330; J2704; J1170

== ENCOUNTER → 2019-09-15 | Outpatient (CLI) | payer OTHER ==
--- NOTE | 2019-09-15 11:47 | XR ---
EXAMINATION TYPE: XR lumbar spine 2 or 3V DATE OF EXAM: 09/15/2019 CLINICAL HISTORY: pain TECHNIQUE: Three views of the lumbar spine are submitted. COMPARISON: None. FINDINGS: There are 5 lumbar type vertebral bodies identified. The lumbar spine shows satisfactory alignment w ithout evidence of acute fracture or dislocation. Vertebral body heights are within normal limits. Severe degenerative disc space narrowing at L4-5 and L5-S1 with vacuum discs. Endplate sclerosis as w ell as associated spondylosis. Severe facet joint arthropathy. The overlying soft tissue appears unr emarkable. IMPRESSION: No acute fracture or dislocation is seen in the lumbar spine. ICD 10 NO FRACTURE, INITIAL EVALUATION
== END | disposition home or self-care (01) ==
LOC: RADXRMAIN 11:15
PROVIDERS: ATTEND Family Medicine
DX: M54.5 Low back pain (principal)
CPT/HCPCS: 72100

== ENCOUNTER → 2019-11-21 | Outpatient (CLI) | payer OTHER ==
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
== END | disposition home or self-care (01) ==
LOC: RADMRIMAIN 16:18
PROVIDERS: ATTEND Family Medicine
DX: M48.061 Spinal stenosis, lumbar region without neurogenic claudication (principal); M51.36 Other intervertebral disc degeneration, lumbar region; M47.816 Spondylosis without myelopathy or radiculopathy, lumbar region
CPT/HCPCS: 72148

== ENCOUNTER → 2019-11-21 | Outpatient (CLI) | payer OTHER ==
--- NOTE | 2019-11-21 13:13 | XR ---
EXAMINATION TYPE: XR chest 2V DATE OF EXAM: 11/21/2019 CLINICAL HISTORY: Preoperative. History of aortic aneurysm with repair. Prior smoker. TECHNIQUE: Frontal and lateral views of the chest are obtained. COMPARISON: None FINDINGS: The cardiomediastinal silhouette is within normal limits for size. Pulmonary vasculature i s normal. There is no focal air space opacity, pleural effusion, or pneumothorax seen. The osseous st ructures are intact. IMPRESSION: No acute cardiopulmonary process.
== END | disposition home or self-care (01) ==
LOC: RADXRMAIN 09:17
PROVIDERS: ATTEND Family Medicine
DX: Z09 Encounter for follow-up examination after completed treatment for conditions other than malignant neoplasm (principal); Z86.79 Personal history of other diseases of the circulatory system; Z87.891 Personal history of nicotine dependence
CPT/HCPCS: 71046

== ENCOUNTER → 2021-02-22 | Outpatient (CLI) | payer MEDICARE, OTHER ==
[2021-02-22 18:54] LABS: Basophils # (A) 0.06 X 10*3/uL (0.00-0.10); Basophils % (A) 0.8 %; Eosinophils # (A) 0.17 X 10*3/uL (0.04-0.35); Eosinophils % (A) 2.3 %; HCT 41.7 % (37.2-46.3); HGB 13.6 g/dL (12.0-15.0); Lymphocytes # (A) 2.35 X 10*3/uL (0.90-5.00); Lymphocytes % (A) 31.4 %; MCH 31.4 pg (27.0-32.0); MCHC 32.6 g/dL (32.0-37.0); MCV 96.3 fL (80.0-97.0); Mean Platelet Volume 10.1 fL (9.5-12.2); Monocytes # (A) 0.47 X 10*3/uL (0.20-1.00); Monocytes % (A) 6.3 %; Neutrophils # (A) 4.41 X 10*3/uL (1.80-7.70); Neutrophils % (A) 58.9 %; Platelet Count 276 X 10*3/uL (140-440); RBC 4.33 X 10*6/uL (4.10-5.20); RDW 12.4 % (11.5-14.5); WBC 7.48 X 10*3/uL (4.50-10.00)
[2021-02-22 20:08] LABS: African American GFR (CKD) 85.4 (60.0-200.0); Albumin 4.6 g/dL (3.8-4.9); Albumin/Globulin Ratio 2.22 (1.60-3.17); Anion Gap 11.5 mmol/L (4.00-12.00); BUN/Creat Ratio 11.8 Ratio (12.00-20.00); Blood Urea Nitrogen 9.8 mg/dL (9.0-27.0); Calcium 9.4 mg/dL (8.7-10.3); Carbon Dioxide 23.6 mmol/L (21.6-31.8); Chol/HDL Ratio 2.06 Ratio; Globulin 2.1 g/dL (1.6-3.3); Non-African American GFR(CKD) 73.7 (60.0-200.0); Potassium 4.7 mmol/L (3.5-5.5); Total Bilirubin 0.4 mg/dL (0.30-1.20); Total Protein 6.7 g/dL (6.2-8.2); Triglycerides 41.9 mg/dL (0.00-149.00); VLDL Calculation 8.38 mg/dL (5.00-40.00)
== END | disposition home or self-care (01) ==
LOC: LABWHC1 12:43
PROVIDERS: ATTEND Family Medicine
DX: Z00.00 Encounter for general adult medical examination without abnormal findings (principal); Z13.220 Encounter for screening for lipoid disorders; Z13.29 Encounter for screening for other suspected endocrine disorder; R10.12 Left upper quadrant pain
CPT/HCPCS: 36415; 80053; 80061; 84443; 85025

== ENCOUNTER → 2021-04-11 | Outpatient (CLI) | payer MEDICARE ==
--- NOTE | 2021-04-13 09:33 | MM ---
Reason for exam: screening (asymptomatic). Last mammogram was performed 3 years and 7 months ago. History: Patient is postmenopausal and had first child at age 34. Physical Findings: A clinical breast exam by your physician is recommended on an annual basis and results should be correlated with mammographic findings. MG Screening Mammo w CAD Bilateral CC and MLO view(s) were taken. Prior study comparison: September 10, 2017, bilateral MG screening mammo w CAD. January 18, 2015, bilateral MG screening mammo w CAD. The breast tissue is heterogeneously dense. This may lower the sensitivity of mammography. Benign appearing calcifications in the right breast. No significant changes when compared with prior studies. ASSESSMENT: Benign, BI-RAD 2 RECOMMENDATION: Routine screening mammogram of both breasts in 1 year.
== END | disposition home or self-care (01) ==
LOC: RADMAMWWP 07:11
PROVIDERS: ATTEND Family Medicine
DX: Z12.31 Encounter for screening mammogram for malignant neoplasm of breast (principal); Z78.0 Asymptomatic menopausal state
CPT/HCPCS: 77067

== ENCOUNTER → 2021-04-12 | Outpatient (CLI) | payer MEDICARE ==
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
== END | disposition home or self-care (01) ==
LOC: RADBDWWP 08:30
PROVIDERS: ATTEND Family Medicine
DX: M85.89 Other specified disorders of bone density and structure, multiple sites (principal); Z78.0 Asymptomatic menopausal state
CPT/HCPCS: 77080

== ENCOUNTER → 2022-01-10 | Outpatient (CLI) | payer MEDICARE ==
[2022-01-11 01:16] LABS: Basophils # (A) 0.07 X 10*3/uL (0.00-0.10); Basophils % (A) 0.8 %; Eosinophils # (A) 0.37 X 10*3/uL (0.04-0.35); Eosinophils % (A) 4.4 %; HCT 41.2 % (37.2-46.3); HGB 13.4 g/dL (12.0-15.0); Immature Grans, Automated 0.2 %; Lymphocytes # (A) 3.18 X 10*3/uL (0.90-5.00); MCH 30.5 pg (27.0-32.0); MCHC 32.5 g/dL (32.0-37.0); MCV 93.6 fL (80.0-97.0); Mean Platelet Volume 10.4 fL (9.5-12.2); Monocytes # (A) 0.57 X 10*3/uL (0.20-1.00); Monocytes % (A) 6.8 %; NRBC Per 100 WBC 0 /100 WBCS (0.0-0.0); Neutrophils # (A) 4.16 X 10*3/uL (1.80-7.70); Neutrophils % (A) 49.8 %; Platelet Count 285 X 10*3/uL (140-440); WBC 8.37 X 10*3/uL (4.50-10.00)
[2022-01-11 05:18] LABS: T4, Free (Free Thyroxine) 1.26 ng/dL (0.800-1.800)
[2022-01-11 05:19] LABS: African American GFR (CKD) 68.5 (60.0-200.0); Albumin 4.7 g/dL (3.8-4.9); Albumin/Globulin Ratio 2.24 (1.60-3.17); Anion Gap 15.2 mmol/L (10.00-18.00); BUN/Creat Ratio 17.7 Ratio (12.00-20.00); Blood Urea Nitrogen 17.7 mg/dL (9.0-27.0); Calcium 9.9 mg/dL (8.7-10.3); Carbon Dioxide 24.8 mmol/L (20.0-27.5); Globulin 2.1 g/dL (1.6-3.3); Non-African American GFR(CKD) 59.1 (60.0-200.0); Potassium 4.8 mmol/L (3.5-5.5); Total Bilirubin 0.3 mg/dL (0.30-1.20); Total Protein 6.8 g/dL (6.2-8.2)
[2022-01-11 05:23] LABS: % Iron Saturation 20.3 (12.00-45.00)
== END | disposition home or self-care (01) ==
LOC: LABWHC1 14:07
PROVIDERS: ATTEND Physician Assistant
DX: G25.81 Restless legs syndrome (principal); R41.3 Other amnesia
CPT/HCPCS: 36415; 80053; 82306; 82607; 82728; 83540; 83550; 84207; 84439; 84443; 84466; 84481; 85025

== ENCOUNTER → 2022-04-12 | Outpatient (CLI) | payer MEDICARE ==
--- NOTE | 2022-04-13 08:35 | MM ---
Reason for Exam: Screening (asymptomatic). Last screening mammogram was performed 12 month(s) ago. Patient History: Menarche at age 14. First Full-Term at age 34. Late child-bearing (after 30). Postmenopausal. MG pre op needle loc RT on the Right side. Risk Values: Rosa 5 year model risk: 2.7%. NCI Lifetime model risk: 9.7%. Prior Study Comparison: 01/18/2015 Bilateral Screening Mammogram, [facility]. 09/10/2017 Bilateral Screening Mammogram, [facility]. 04/11/2021 Bilateral Screening Mammogram, [facility]. Tissue Density: The breast tissue is heterogeneously dense. This may lower the sensitivity of mammography. Findings: Analyzed By CAD. There is no suspicious group of microcalcifications or new suspicious mass in either breast. Overall Assessment: Negative, BI-RAD 1 Management: Screening Mammogram of both breasts in 1 year. A clinical breast exam by your physician is recommended on an annual basis and results should be correlated with mammographic findings. [facility] will attempt to contact patient to return for supplemental views and ultrasound if indicated. Electronically signed and approved by: Nirav Brewer DO
== END | disposition home or self-care (01) ==
LOC: RADMAMWWP 09:25
PROVIDERS: ATTEND Family Medicine
DX: Z12.31 Encounter for screening mammogram for malignant neoplasm of breast (principal); Z78.0 Asymptomatic menopausal state
CPT/HCPCS: 77063; 77067

== ENCOUNTER 2022-11-25 17:44 | Emergency (ER) | payer MEDICARE ==
--- NOTE | 2022-11-25 19:12 | XR ---
EXAMINATION TYPE: XR lumbar spine 2 or 3V DATE OF EXAM: 11/25/2022 CLINICAL HISTORY: pain TECHNIQUE: Three views of the lumbar spine are submitted. COMPARISON: 09/15/2019 FINDINGS: There are 5 lumbar type vertebral bodies identified. No acute fracture or dislocation. Straightening of the normal lumbar lordosis. No spondylolisthesis. Vertebral body heights are within normal limits. Multilevel degenerative disc disease with disc space narrowing and endplate sclerosis with anterio r osteophytosis. This is most pronounced at L4-L5 and L5-S1. The overlying soft tissue appears unrem arkable. IMPRESSION: 1. No acute fracture or dislocation is seen in the lumbar spine. 2. Redemonstration of lower lumbar spine degenerative disc disease.
[2022-11-25 19:35] VITALS: BP 172/83; PULSE 64; RESP 18; TEMP 97.7
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
== END 2022-11-25 20:21 | disposition home or self-care (01) ==
LOC: EC 17:44
DX: M51.36 Other intervertebral disc degeneration, lumbar region (principal); I10 Essential (primary) hypertension; Z86.59 Personal history of other mental and behavioral disorders; Z79.899 Other long term (current) drug therapy
CPT/HCPCS: 72100; 99283

== ENCOUNTER → 2023-04-27 | Outpatient (CLI) | payer MEDICARE, OTHER ==
--- NOTE | 2023-04-27 13:23 | MM ---
Reason for Exam: Screening (asymptomatic). Last screening mammogram was performed 12 month(s) ago. Patient History: Menarche at age 14. First Full-Term at age 34. Late child-bearing (after 30). Postmenopausal. MG pre op needle loc RT on the Right side. Risk Values: Rosa 5 year model risk: 2.8%. NCI Lifetime model risk: 9.3%. Prior Study Comparison: 09/10/2017 Bilateral Screening Mammogram, [facility]. 04/11/2021 Bilateral Screening Mammogram, [facility]. 04/12/2022 Bilateral MG 3D screening mammo w/cad, [facility]. Tissue Density: The breast tissue is heterogeneously dense. This may lower the sensitivity of mammography. Findings: Analyzed By CAD. There is no suspicious group of microcalcifications or new suspicious mass. Overall Assessment: Negative, BI-RAD 1 Management: Screening Mammogram of both breasts in [address] [facility] will attempt to contact patient to return for supplemental views and ultrasound if indicated. Patient should continue monthly self-breast exams. A clinical breast exam by your physician is recommended on an annual basis. This exam should not preclude additional follow-up of suspicious palpable abnormalities. Note on Rosa scores and lifetime risk: 1. A Rosa score greater than 3% is considered moderate risk. If this is the case, consider specialist referral to assess eligibility for a risk reducing agent. 2. If overall lifetime risk for the development of breast cancer is 20% or higher, the patient may qualify for future screening with alternating mammogram and breast MRI. Electronically signed and approved by: Nirav Brewer DO
== END | disposition home or self-care (01) ==
LOC: RADMAMWWP 12:55
PROVIDERS: ATTEND Family Medicine
DX: Z12.31 Encounter for screening mammogram for malignant neoplasm of breast (principal); Z78.0 Asymptomatic menopausal state
CPT/HCPCS: 77063; 77067

== ENCOUNTER → 2024-04-28 | Outpatient (CLI) | payer MEDICARE, OTHER ==
--- NOTE | 2024-04-30 22:08 | BD ---
EXAMINATION TYPE: Axial Bone Density DATE OF EXAM: 04/28/2024 CLINICAL HISTORY: 69 years old Female. ICD-10 CODE: M85.88 OSTEOPENIA , Additional History: Height: 61.7 in Weight: 137 lbs FRAX RISK QUESTIONS: History of Fracture in Adulthood: rt wrist fx age 22; pelvis fx age 22 HISTORY OF: History of Wrist Fracture: rt wrist age 22 EXAM MEASUREMENTS: Bone mineral densitometry was performed using the [employer] System. Bone mineral density as measured about the Lumbar spine is: ----- L1-L4(G/cm2): 1.449 T Score Values are as follows: ----- L1: 0.2 ----- L2: 0.9 ----- L3: 2.8 ----- L4: 4.8 ----- L1-L4: 2.2 Z Score Values are as follows: ----- L1: 1.9 ----- L2: 2.7 ----- L3: 4.5 ----- L4: 6.5 ----- L1-L4: 4.0 Bone mineral density has: Increased 5.8% since study of: 04/12/2021 Bone mineral density about the R hip (g/cm2): 0.973 Bone mineral density about the L hip (g/cm2): 0.920 T Score values are as follows: -----R Neck: -1.2 -----L Neck: -1.3 -----R Total: -0.3 -----L Total: -0.7 Z Score values are as follows: -----R Neck: 0.5 -----L Neck: 0.4 -----R Total: 1.2 -----L Total: 0.7 Bone mineral density has: Decreased -1.6% since study of: 04/12/2021 FRAX%s: The graph provided illustrates a 15.0% chance for a major osteoporotic fx and a 1.6% chance f or the hips probability for fx in 10 years time. IMPRESSION: Osteopenia (T Score between -2.5 and -1). There is slightly increased risk of fracture and the patient may be considered for treatment. Re-Screen 2-5 years. NOTE: T-SCORE=SD OF THE YOUNG ADULT MEAN. [facility], , 04/30/2024 10:06 PM
--- NOTE | 2024-05-01 18:15 | MM ---
Reason for Exam: Screening (asymptomatic). Last screening mammogram was performed 12 month(s) ago. Patient History: Menarche at age 14. First Full-Term at age 34. Late child-bearing (after 30). Postmenopausal. MG pre op needle loc RT on the Right side. Risk Values: Rosa 5 year model risk: 2.8%. NCI Lifetime model risk: 8.9%. Prior Study Comparison: 04/11/2021 Bilateral Screening Mammogram, [facility]. 04/12/2022 Bilateral MG 3D screening mammo w/cad, [facility]. 04/27/2023 Bilateral MG 3D screening mammo w/cad, [facility]. Tissue Density: There are scattered areas of fibroglandular density. Findings: Analyzed By CAD. The pattern is symmetrical. No significant interval change No suspicious groups of microcalcifications, spiculated or lobular masses, architectural distortion or other secondary signs of malignancy are mammographically apparent. Overall Assessment: Benign, BI-RAD 2 Management: Screening Mammogram of both breasts in 1 year. A negative mammogram report should not preclude additional follow up of suspicious palpable abnormalities. Patient should continue monthly self breast exam. A clinical breast exam by your physician is recommended on an annual basis and results should be correlated with mammographic findings. Note on Rosa scores and lifetime risk: 1. A Rosa score greater than 3% is considered moderate risk. If this is the case, consider specialist referral to assess eligibility for a risk reducing agent. 2. If overall lifetime risk for the development of breast cancer is 20% or higher, the patient may qualify for future screening with alternating mammogram and breast MRI. [facility], , 05/01/2024 6:13 PM. Electronically signed and approved by: Ryan Green D.O. Radiologis
== END | disposition home or self-care (01) ==
LOC: RADMAMWWP 08:23
PROVIDERS: ATTEND Family Medicine
DX: Z12.31 Encounter for screening mammogram for malignant neoplasm of breast (principal); Z78.0 Asymptomatic menopausal state; R92.323 Mammographic fibroglandular density, bilateral breasts; M85.89 Other specified disorders of bone density and structure, multiple sites
CPT/HCPCS: 77063; 77067; 77080